=== PATIENT | male | born 1975 | race African-American/Black ===

== ENCOUNTER 2016-08-27 13:51 | Emergency (ER) | payer OTHER ==
[~2016-08-27] VITALS: Ht 170.2 cm; Wt 100.0 kg
[2016-08-27 13:53] VITALS: BP 139/85; PULSE 108; RESP 16; TEMP 98.4; O2SAT 97
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
[2016-08-27] MEDS ORDERED: KETOROLAC TROMETHAMINE 60 MG/2 ML (IM) VIAL IM ONE (14:30)
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
[2016-08-27] MEDS ORDERED: CYCL1TAB29 PO (16:08)
[2016-08-27] MEDS ORDERED: PRED20 PO (16:08)
[2016-08-27] MEDS ORDERED: NON-500T13 PO (16:08)
== END 2016-08-27 16:38 | disposition home or self-care (01) ==
LOC: NEPD 13:51
DX: S16.1XXA Strain of muscle, fascia and tendon at neck level, initial encounter (principal); M54.12 Radiculopathy, cervical region; M62.81 Muscle weakness (generalized); F17.200 Nicotine dependence, unspecified, uncomplicated; Z79.899 Other long term (current) drug therapy; Z79.82 Long term (current) use of aspirin; V41.9XXA Unspecified car occupant injured in collision with pedal cycle in traffic accident, initial encounter
CPT/HCPCS: 72072; 72110; 72125; 96372; 99284; J1885; L0120; L0150